=== PATIENT | female | born 2000 | race Two or more races ===

== ENCOUNTER 2020-04-08 01:30 | Emergency (ER) | payer BC ==
[~2020-04-08] VITALS: Ht 162.6 cm; Wt 64.4 kg
--- NOTE | 2020-04-08 01:37 | NUR ---
PT MARIAJOSE FROM BOYFRIEND'S HOUSE C/O R KNEE LAC. PT STATES KNEE GOT CAUGHT ON DOOR EDGE. LACERATION APPROXIMATELY 8" LENGTH, 4"WIDTH, 1" DEPTH. PT AAOX4. RESPIRATIONS EVEN AND UNLABORED. VITAL SIGNS STABLE. NO ACUTE DISTRESS NOTED AT THIS TIME, PENDING MD FERNANDO
--- NOTE | 2020-04-08 01:40 | NUR ---
TECH AT BEDSIDE FOR WOUND CARE
--- NOTE | 2020-04-08 02:36 | NUR ---
PT BROUGHT BY RADIOLOGY TO CT
--- NOTE | 2020-04-08 02:45 | NUR ---
PT RETURNED FROM CT
--- NOTE | 2020-04-08 02:51 | NUR ---
SASHA (MOTHER) CONTACT INFORMATION: [phone]
--- NOTE | 2020-04-08 03:41 | NUR ---
CALLED [facility] FOR REPORT
--- NOTE | 2020-04-08 04:10 | NUR ---
CALLED [facility] FOR REPORT
--- NOTE | 2020-04-08 04:30 | NUR ---
Patient discharged to home in stable condition. Written and verbal after care instructions given. Patient verbalizes understanding of instruction.Pt ambulatory with a steady gait
[2020-04-08 04:46] VITALS: BP 127/84
== END 2020-04-08 04:46 | disposition home or self-care (01) ==
LOC: ER 01:32
DX: S81.011A Laceration without foreign body, right knee, initial encounter (principal); Z88.6 Allergy status to analgesic agent; Y04.8XXA Assault by other bodily force, initial encounter; Y93.89 Activity, other specified; Y92.89 Other specified places as the place of occurrence of the external cause; Y99.8 Other external cause status
CPT/HCPCS: 12004; 73700; 99284; A6403